=== PATIENT | male | born 1990 | race African-American/Black ===

== ENCOUNTER 2017-02-10 05:49 | Emergency (ER) | payer SELFPAY ==
[2017-02-10] MEDS ORDERED: Ketorolac Tromethamine 30 MG/ML VIAL ONE (06:19)
[2017-02-10] MEDS ORDERED: Ondansetron HCl/PF 4 MG/2 ML Vial ONE (06:37)
[2017-02-10 06:43] LABS: Hemoglobin 14.3 g/dL (14.0-18.0); Mean Corpuscular HGB CONC 35.1 g/dL (32.0-36.0); Mean Corpuscular Hemoglobin 32.7 pg (27.0-31.0); Mean Corpuscular Volume 93.2 fl (80.0-94.0); Mean Platelet Volume 7.5 fL (7.4-10.4); Platelet Count 192 thou/uL (130-400); RBC Distribution Width 11.7 % (11.5-14.5); Red Blood Cell (RBC) Count 4.34 mill/uL (4.70-6.10); White Blood Cell (WBC) Count 6.2 thou/uL (4.8-10.8)
[2017-02-10 06:44] LABS: Bilirubin Negative (Negative); Blood, Urine Large (Negative); Glucose, Urine (Dipstick) Negative (Negative); Leukocyte Negative (Negative); Nitrite Negative (Negative); Protein, Urine (Dipstick) 30 mg/dL (Neg-Trace); Specific Gravity, Urine 1.025 (1.005-1.030)
[2017-02-10 06:45] LABS: Bacteria/HPF Rare-Few HPF (None Seen); Clarity Hazy (Clear); RBC/HPF GREATER THAN 50-TNTC HPF (0-3); Squamous Epithelial 0-3 HPF (0-3); WBC/HPF 0-3 HPF (0-3)
[2017-02-10 06:52] LABS: ALT (SGPT) 60 U/L (8-55); AST (SGOT) 37 U/L (5-34); Albumin 4.4 g/dL (3.5-5.0); Alkaline Phosphatase 57 U/L (40-150); Anion Gap 14 mmol/L (10-20); BUN (Urea Nitrogen) 18 mg/dL (8.9-20.6); Bilirubin, Total 0.7 mg/dL (0.2-1.2); Calc. Creatinine Clearance 0 mL/min (70-130); Calcium 9.2 mg/dL (7.8-10.44); Carbon Dioxide 27 mmol/L (22-29); Chloride 103 mmol/L (98-107); Estimated GFR-MDRD 71; Globulin 2.8 g/dL (2.4-3.5); Glucose 120 mg/dL (70-105); Potassium 3.5 mmol/L (3.5-5.1); Protein, Total 7.2 g/dL (6.0-8.3); Sodium 140 mmol/L (136-145)
[2017-02-10 06:53] LABS: Manual Diff?? YES
[2017-02-10] MEDS ORDERED: Morphine 4 MG/ML VIAL ONE (06:53)
[2017-02-10 06:54] LABS: Anisocytosis SLIGHT = 6-15 cells (100X) (0-5/hpf); Eosinophils 1 % (0-10); Lymphocytes 52 % (21-51); Monocytes 14 % (0-10); PLT Morphology Comment Appears Adequate
[2017-02-10] MEDS ORDERED: Azithromycin 250 MG TAB ONE (07:02)
[2017-02-10] MEDS ORDERED: Lidocaine 1% 20 ML MDV ONE (07:02)
[2017-02-10] MEDS ORDERED: cefTRIAXone\\ROCEPHIN 1 GM VIAL ONE (07:02)
[2017-02-10] MEDS ORDERED: Sodium Chloride 0.9% 1,000 ML BAG ONE (07:08)
[2017-02-10] MEDS ORDERED: Tamsulosin HCl 0.4 MG CAP ONE (07:49)
[2017-02-10 07:59] LABS: MDiff Complete? YES
--- NOTE | 2017-02-10 08:11 | CT ---
PRELIMINARY REPORT/[facility]/EMERGENCY AFTER HOURS PROCEDURE: EXAM: CT Abdomen and Pelvis Without Intravenous Contrast EXAM DATE/TIME: 02/10/2017 7:06 AM CLINICAL HISTORY: 26 years old, male; Pain; Abdominal pain; Acute; Patient HX: Left side pain that started at 530 this morning; Hematuria; Additional info: Na TECHNIQUE: Axial computed tomography images of the abdomen and pelvis without intravenous contrast. All CT scans at this facility use one or more dose reduction techniques, viz.: automated exposure control; ma/kV adjustment per patient size (including targeted exams where dose is matched to indication; i.e. head) ; or iterative reconstruction technique. Coronal reformatted images were created and reviewed. COMPARISON: No relevant prior studies available. FINDINGS: Lower thorax: No acute findings. ABDOMEN: Liver: Unremarkable. Gallbladder and bile ducts: Unremarkable. Pancreas: Unremarkable. Spleen: normal Adrenals: Unremarkable. No mass. Kidneys and ureters: -Mild hydronephrosis and hydroureter secondary to a calcification within the dis armen ureter adjacent to the left ureterovesical junction measuring approximately 2 mm. Renal calcifica tions right kidney largest 2 mm. Stomach and bowel: -Large amount of stool throughout the large bowel. Appendix: -The appendix is normal. PELVIS: Bladder: Unremarkable. No stones. Reproductive: normal. No mass ABDOMEN and PELVIS: Intraperitoneal space: No free fluid within the pelvis or within the dependent portions of the perito neum. No free air. Bones/joints: No acute fracture. No dislocation. Soft tissues: Unremarkable. Vasculature: Unremarkable. No abdominal aortic aneurysm. Lymph nodes: -Numerous inguinal lymph nodes bilaterally. Nonspecific. Numerous small subcentimeter ly mph nodes in the aorta caval region. Other findings: No acute inflammatory process. No obstruction. IMPRESSION: 1. -Mild hydronephrosis and hydroureter secondary to a calcification within the distal ureter adjacen t to the left ureterovesical junction measuring approximately 2 mm. 2. -Large amount of stool throughout the large bowel. 3. -The appendix is normal. 4. No acute inflammatory process. No obstruction. Thank you for allowing us to participate in the care of your patient. Dictated and Authenticated by: Hema Cha MD 02/10/2017 7:27 AM Central Time ([place] & [place]) FINAL REPORT EMERGENT AFTER HOURS NONCONTRAST CT ABDOMEN AND PELVIS: DATE: 02/10/17. HISTORY: Left-sided abdominal pain that started at 0530 hours this morning. IMPRESSION: 1. Nonobstructing inferior pole right renal calculi measuring approximately 2 mm. 2. Minimal pelvocaliectasis on the left with mild prominence of the left ureter, and there is an pushpa roximately 2 mm calculus in the distal left ureter near the left ureterovesical junction. 3. No CT evidence of appendicitis. 4. Findings are in agreement with the preliminary report by [facility]. POS: VICTOR HUGO
--- NOTE | 2017-02-10 08:12 | ULT ---
PRELIMINARY REPORT/[facility]/EMERGENCY AFTER HOURS PROCEDURE: EXAM: US Scrotum CLINICAL HISTORY: 26 years old, male; Pain; Scrotum pain; Patient HX: Patient was sitting in his car at 530 this mornin g and experienced sudden left side pain; Additional info: Na TECHNIQUE: Real-time ultrasound of the scrotum with color Doppler and image documentation. COMPARISON: No relevant prior studies available. FINDINGS: Right testicle: Unremarkable. No mass. No torsion. Left testicle: Unremarkable. No mass. No torsion. Epididymides: Unremarkable. Scrotum: Small hydroceles IMPRESSION: No sonographic evidence for testicular torsion Small hydroceles Thank you for allowing us to participate in the care of your patient. Dictated and Authenticated by: Galo Marks MD 02/10/2017 6:53 AM Central Time ([place] & [place]) FINAL REPORT TESTICULAR ULTRASOUND: Color Doppler with spectral analysis demonstrates blood flow to both testicles. No acute abnormality identified. I am in agreement with the preliminary report. POS: [facility]
[2017-02-12 00:52] LABS: Chlamydia by PCR Not Detected (NotDetected); GC by PCR Not Detected (NotDetected)
== END 2017-02-10 08:06 | disposition home or self-care (01) ==
LOC: MADERS 05:49
DX: N13.2 Hydronephrosis with renal and ureteral calculous obstruction (principal)
CPT/HCPCS: 74176; 76870; 80053; 81003; 81015; 85025; 87491; 87591; 93976; 96361; 96372; 96374; 96375; J0696; J1885; J2001; J2270; J2405; J7050